=== PATIENT | female | born 1990 | race Caucasian/White ===

== ENCOUNTER 2016-10-15 13:32 | Day surgery (SDC) | payer BC ==
[~2016-10-15] VITALS: Ht 167.6 cm; Wt 80.2 kg
[2016-10-15] VITALS (12 sets, daily range): BP systolic 98–123; BP diastolic 50–70; PULSE 54–69; RESP 19–23; Ht 167.6 cm; Wt 80.2 kg
[~2016-10-15 13:32] MED LIST: CEFAZOLIN 2 GM/50 ML (PMX) 50 ML IVPB ONE; SOD CHLORIDE 0.9% 1,000 ML IV SCH
[2016-10-15] MEDS ORDERED: FOLI-49 PO (14:27)
[2016-10-15] MEDS ORDERED: SYN1 PO ×2 (14:27→14:28)
[2016-10-15 14:42] LABS: ADD SCAN DIFF NO
[2016-10-15 14:43] LABS: BASOPHIL # 0.1 10^3/ul (0.0-0.1); BASOPHILS % 1.5 % (0.0-2.0); EOSINOPHILS # 0.1 10^3/ul (0.0-0.5); EOSINOPHILS % 1.1 % (0.0-7.0); HEMATOCRIT 35.3 % (37.0-47.0); HEMOGLOBIN 11.4 g/dl (12.0-16.0); LYMPHOCYTES # 2.1 10^3/ul (0.8-2.9); LYMPHOCYTES % 38.9 % (15.0-51.0); MEAN CORPUSCULAR HGB CONC 32.3 g/dl (32.0-37.0); MEAN CORPUSCULAR VOLUME 83.5 fl (82.0-101.0); MEAN PLATELET VOLUME 11.4 fl (7.4-10.4); MONOCYTE # 0.4 10^3/ul (0.3-0.9); MONOCYTES % 7.8 % (0.0-11.0); NEUTROPHIL # 2.7 10^3/ul (1.6-7.5); NEUTROPHILS % 50.7 % (39.0-77.0); PLATELET COUNT 202 10^3/UL (140-415); RED BLOOD COUNT 4.23 10^6/ul (4.20-5.40); RED CELL DISTRIBUTION WIDTH 13.2 % (11.5-14.5); WHITE BLOOD COUNT 5.3 10^3/ul (4.8-10.8)
[2016-10-15 15:00] LABS: INR 1.03; PROTIME 13.5 Sec (12.2-14.2); PT RATIO 1.1
[2016-10-15 15:01] LABS: PARTIAL THROMBOPLASTIN TIME 28.5 Sec (25.0-35.0)
[2016-10-15 15:03] LABS: ALBUMIN 4.5 g/dl (3.3-4.9); ALBUMIN/GLOBULIN RATIO 1.66; BILIRUBIN,INDIRECT 0.3 mg/dl (0-1.1); BILIRUBIN,TOTAL 0.3 mg/dl (0.2-1.3); TOTAL PROTEIN 7.2 g/dl (6.1-8.1)
[2016-10-15 15:23] LABS: CALCIUM 9.2 mg/dl (8.4-10.2); CREATININE 0.83 mg/dl (0.44-1.00); POTASSIUM 3.8 mmol/L (3.5-5.1)
[2016-10-15] MEDS ORDERED: MIDAZOLAM 1 MG/ML 2 ML INJ ONE (17:51)
[2016-10-15] MEDS ORDERED: BUPIVACAINE 0.25%/EPI (SDV) 30 ML INJ ONE (17:54)
[2016-10-15] MEDS ORDERED: FENTAnyl 50 MCG/ML VIAL IV PRN (19:00)
[2016-10-15] MEDS ORDERED: DIPHENHYDRAMINE 50 MG INJ IV PRN (19:00)
[2016-10-15] MEDS ORDERED: MEPERIDINE 25 MG INJ IV PRN (19:00)
[2016-10-15] MEDS ORDERED: ONDANSETRON 4 MG INJ IV PRN ×2 (19:00→19:30)
[2016-10-15] MEDS ORDERED: LIDOCAINE 2% (SDV) 5 ML INJ ONE (19:15)
[2016-10-15] MEDS ORDERED: PROPOFOL 20 ML ONE (19:15)
[2016-10-15] MEDS ORDERED: NEOSTIGMINE 3 MG/3 ML SYRINGE ONE (19:15)
[2016-10-15] MEDS ORDERED: GLYCOPYRROLATE 0.4 MG INJ ONE (19:15)
[2016-10-15] MEDS ORDERED: ROCURONIUM 50 MG INJ ONE (19:15)
[2016-10-15] MEDS ORDERED: CEFAZOLIN 1 GM INJ ONE (19:15)
--- NOTE | 2016-10-15 19:26 | OPR ---
Date/Time of Note Date/Time of Note DATE: 10/15/16 TIME: 19:20 Operative Report Procedure Date: Oct 15, 2016 Preoperative Diagnosis Chronic cholecystitis/cholelithiasis Postoperative Diagnosis Chronic cholecystitis/cholelithiasis Operation Performed Laparoscopic cholecystectomy Surgeon: HUNG BANG MD Anesthesia: general Anesthesiologist: CHHAYA MICHELLE MD Estimated Blood Loss: minimal Specimens Gallbladder Complications: None Pt Condition Post Procedure: stable Disposition: PACU Indications The patient is a 25-year-old female who presented to the office after an attack of gallstone pancreatitis requiring hospital admission approximately 3 months prior. She also described symptoms of right upper quadrant abdominal pain. The patient had clinical signs and symptoms of chronic cholecystitis and cholelithiasis which was confirmed via ultrasound. The patient was scheduled for laparoscopic cholecystectomy; possible open as definitive treatment to prevent further sequelae of gallstone disease which include but are not limited to: Gangrenous cholecystitis, choledocholithiasis, gallstone pancreatitis, ascending cholangitis, etc. All risks and benefits of the procedure including but not limited to: Wound infection, excessive bleeding, common bile duct injury , postoperative biliary leak, retained common bile duct stone, injury to intra- abdominal organs, conversion to open procedure, possible need for subsequent surgeries, etc. were all explained to the patient in full detail. She fully understood and wished to proceed with the procedure. Informed consent was therefore obtained. Operative\Procedure Findings Findings consistent with chronic cholecystitis. Cholelithiasis. Procedure Description The patient was brought to the operating room and placed supine on the operating table. Bilateral sequential compression devices were placed on both lower extremities. A dose of broad-spectrum perioperative intravenous antibiotics was given. After the induction of smooth general endotracheal anesthesia the patient's abdomen was prepped and draped in the standard surgical fashion. After performance of the surgical timeout a 5 mm incision was made in the inferior umbilicus and a Veress needle was used to access the intra- abdominal cavity atraumatically. Pneumoperitoneum was then obtained and the Veress needle was exchanged for a 5 mm trocar through which a 5 mm laparoscope was placed. Three further working ports were then placed a 12 mm port in the sub -xiphoid region and two 5 mm ports in the right upper quadrant. All port sites were anesthetized with 0.25% Marcaine with epinephrine prior to incision. Diagnostic laparoscopy showed hepatomegaly. Using atraumatic graspers the gallbladder was grasped and retracted superiorly and laterally exposing the area of Rubio's pouch. Dissection was begun in this area using a combination of blunt dissection and hook electrocautery. There was a lot of chronic scarring in the area of the cystic duct structures. Therefore, the gallbladder was mobilized along its lateral and medial attachments using the hook electrocautery to gain better exposure and mobility. After tedious dissection, the cystic duct was identified as it entered straight into the neck of the gallbladder. It was dissected free of surrounding tissues. There was too much scarring to be able to use a clip regrind mill operator, therefore, the cystic duct was transected using laparoscopic GI stapler. Dissection was then continued posteriorly. The cystic artery was identified and dissected free of surrounding tissues. It was clipped proximally and distally x 2 and transected using EndoShears. The gallbladder was then dissected off the liver bed using electrocautery. There was a moderate amount of edema in the gallbladder's attachments to the liver bed. Once completely free the gallbladder was placed in an Endo Catch bag and withdrawn through the subxiphoid port site and passed off the field as specimen. Hemostasis was then inspected for and noted to be total. The abdomen was then irrigated with several liters of warm normal saline and the irrigant returned crystal clear. The fascia of the subxiphoid port site was then reapproximated using a oh-close device. Pneumoperitoneum was then released and all remaining trochars were withdrawn under direct vision. The subcutaneous tissues were irrigated with more warm normal saline and further local anesthesia was applied around the skin of the incision sites. The skin was then reapproximated using 4-0 Monocryl sutures in subcuticular fashion. The incisions were cleaned and Dermabond was applied to the incisions and the patient was awoken from anesthesia and transported to the recovery room in stable condition. All counts were correct at the end of the case x 2. HUNG BANG MD Oct 15, 2016 19:26
[2016-10-15] MEDS ORDERED: KETOROLAC 30 MG INJ IV PRN (19:30)
[2016-10-15] MEDS ORDERED: HYDROCODONE/APAP (5/325) TAB PO PRN ×2 (19:30)
[2016-10-15] MEDS ORDERED: morphine 2 MG INJ IV PRN (19:30)
[2016-10-15] MEDS ORDERED: IBUPROFEN 600 MG TAB PO PRN (19:30)
== END 2016-10-15 21:16 | disposition home or self-care (01) ==
LOC: SDS 13:32
PROVIDERS: ATTEND Surgery
DX: K80.10 Calculus of gallbladder with chronic cholecystitis without obstruction (principal)
CPT/HCPCS: 47562; 80053; 85025; 85610; 85730; 88304; J0690; J1885; J2250; J2405; J2710; J3010; Z7512; Z7610